=== PATIENT | female | born 1980 ===

== ENCOUNTER 2018-09-28 10:44 | Inpatient (IN) | payer OTHER ==
[~2018-09-28] VITALS: Ht 165.1 cm; Wt 76.2 kg
== END 2018-10-06 12:51 | disposition home or self-care (01) | DRG 743 ==
LOC: OB/GYN 10-03 08:11 → O/R 10-03 08:11 → SURH 10-03 10:42 → SURG 10-03 13:19 → OB/GYN 10-03 14:21
PROVIDERS: Obstetrics & Gynecology
PROC: 0UB90ZZ Excision of Uterus, Open Approach (ICD-10-PCS; principal; 2018-10-03 09:00)
DX: D25.2 Subserosal leiomyoma of uterus (principal)

== ENCOUNTER → 2018-10-26 | Emergency (ER) | payer OTHER ==
[~2018-10-26] VITALS: Ht 170.2 cm; Wt 70.3 kg
== END | disposition home or self-care (01) ==
LOC: ER 20:10
DX: N99.843 Postprocedural seroma of a genitourinary system organ or structure following other procedure (principal); Y84.8 Other medical procedures as the cause of abnormal reaction of the patient, or of later complication, without mention of misadventure at the time of the procedure; Y92.89 Other specified places as the place of occurrence of the external cause